=== PATIENT | male | born 1995 | race African-American/Black ===

== ENCOUNTER 2018-01-21 16:00 | Emergency (ER) | payer OTHER ==
[~2018-01-21] VITALS: Ht 182.9 cm; Wt 154.2 kg
[2018-01-21 16:10] VITALS: BP 123/77
[2018-01-21] MEDS ORDERED: LIDOCAINE 1%/EPI 1:100,000 20 ML VIAL. IJ ONE (16:45)
--- NOTE | 2018-01-21 17:00 | PHYS DOC ---
Past History Past Medical History: Asthma Past Surgical History: No Surgical History Alcohol Use: None Drug Use: None Adult General Chief Complaint Chief Complaint: HEMORRHOIDS HPI HPI 22-year-old male presents with pain in his buttocks. He states that he feels like there is a mass on the right side his gluteal cleft. He had this once before a few months ago and it had spontaneous rupture and drainage. It resolved with oral antibiotics afterwards. He denies fever or chills. This is only the second time has had one of these. He has never had an abscess anywhere else and denies testing positive for MRSA as far he knows. Patient has no other complaints.[] Review of Systems Review of Systems Constitutional: Denies fever or chills [] Eyes: Denies change in visual acuity, redness, or eye pain [] HENT: Denies nasal congestion or sore throat [] Respiratory: Denies cough or shortness of breath [] Cardiovascular: No additional information not addressed in HPI [] GI: Denies abdominal pain, nausea, vomiting, bloody stools or diarrhea [] : Abscess and gluteal cleft[] Musculoskeletal: Denies back pain or joint pain [] Integument: Gluteal abscess[] Neurologic: Denies headache, focal weakness or sensory changes [] Endocrine: Denies polyuria or polydipsia [] All other systems were reviewed and found to be within normal limits, except as documented in this note. Current Medications Current Medications Current Medications Medications (Trade) Dose Ordered Sig/Vonda Start Time Stop Time Status Last Admin Dose Admin Lidocaine/ Epinephrine (Xylocaine 1%-Epi 1:100,000) 20 ml 1X ONCE 01/21/18 16:45 01/21/18 16:46 DC Allergies Allergies Allergies Coded Allergies Type Severity Reaction Last Updated Verified No Known Drug Allergies 01/21/18 No Physical Exam Physical Exam Constitutional: Well developed, well nourished, no acute distress, non-toxic appearance. [] HENT: Normocephalic, atraumatic, bilateral external ears normal, oropharynx moist, no oral exudates, nose normal. [] Eyes: PERRLA, EOMI, conjunctiva normal, no discharge. [] Neck: Normal range of motion, no tenderness, supple, no stridor. [] Cardiovascular:Heart rate regular rhythm, no murmur [] Lungs & Thorax: Bilateral breath sounds clear to auscultation [] Abdomen: Bowel sounds normal, soft, no tenderness, no masses, no pulsatile masses. [] Skin: 3 cm fluctuant mass on the right side of the patient's anus in the gluteal cleft. This appears consistent with abscess.[] Back: No tenderness, no CVA tenderness. [] Extremities: No tenderness, no cyanosis, no clubbing, ROM intact, no edema. [] Neurologic: Alert and oriented X 3, normal motor function, normal sensory function, no focal deficits noted. [] Psychologic: Affect normal, judgement normal, mood normal. [] Current Patient Data Vital Signs Vital Signs Date Time Temp Pulse Resp B/P (MAP) Pulse Ox O2 Delivery O2 Flow Rate FiO2 01/21/18 16:10 Room Air 01/21/18 16:10 98.5 102 22 95 EKG EKG [] Radiology/Procedures Radiology/Procedures [] Course & Med Decision Making Course & Med Decision Making Pertinent Labs and Imaging studies reviewed. (See chart for details) The patient's mass was likely an abscess. I performed an I&D without complication. See note below for more details. I will place the patient on Bactrim DS 2 tabs twice a day for 7 days. I also discussed with the patient the possibility this. He is communicating with the rectum. I was unable to find a definitive track, but I advised him that if this area becomes infected again, he should seek a surgical consult. I&D: I obtained verbal consent from the patient I&D of his gluteal abscess. A timeout was performed to identify the site and type of procedure to be performed. The area was cleansed with chlorhexidine sponges. The chem was anesthetized with 1% lidocaine with epinephrine. I then made a 1/2 cm incision with a #11 scalpel. There was a moderate amount of drainage of purulent material. A wound culture was sent. I compressed and massage the abscess to milk out as much pus as possible. The abscess appeared to be deeper than initially thought as there was a decent amount of output. I then probed the abscess with a sterile Q-tip to ensure there were no loculations. Once the abscess was fully drained, placed clean gauze over the wound to facilitate continued absorption of any fluid that would come out. Patient tolerated the procedure well. There were no complications. Bleeding from the incision was controlled. [] Dragon Disclaimer Dragon Disclaimer This electronic medical record was generated, in whole or in part, using a voice recognition dictation system. Departure Departure: Scripts Sulfamethoxazole/Trimethoprim (BACTRIM DS TABLET) 1 Each Tablet 2 TAB PO BID for 7 Days, #28 TAB Prov: YAMILETH CARDOSO DO 01/21/18 YAMILETH CARDOSO DO Jan 21, 2018 17:00
[2018-01-21] MEDS ORDERED: SULF1TAB24 PO (18:25)
== END 2018-01-21 18:40 | disposition home or self-care (01) ==
LOC: ER 16:00
DX: L02.31 Cutaneous abscess of buttock (principal); J45.909 Unspecified asthma, uncomplicated
CPT/HCPCS: 10060; 87070; 99283

== ENCOUNTER 2019-04-23 22:33 | Emergency (ER) | payer OTHER ==
[~2019-04-23] VITALS: Ht 182.9 cm; Wt 166.8 kg
[~2019-04-23 22:33] MED LIST: SULF1TAB24 PO
--- NOTE | 2019-04-23 22:38 | PHYS DOC ---
Past History Past Medical History: Asthma Past Surgical History: No Surgical History Alcohol Use: None Drug Use: None Adult General Chief Complaint Chief Complaint: ".. I ve been sick since .... Congestion, drainage, cough.. 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 Pt. states the Upper respiratory Infection, cough, fever, chills have been present since . Patient is in his second year of college. Pt. travel from [place]. Pt. did not get a flu vaccination this season. Is around a lot of other students that have upper respiratory infections, bronchitis influenza. Patient states he is normally healthy. No history immunosuppression. Patient denies steroid use. Patient does have a history of asthma when he was a child. Review of Systems Review of Systems Constitutional: History of fever or chills [] Eyes: Denies change in visual acuity, redness, or eye pain [] HENT: History of nasal congestion and sore throat [] Respiratory: Complaints of nonproductive cough and wheezing Cardiovascular: No additional information not addressed in HPI [] GI: Denies abdominal pain, nausea, vomiting, bloody stools or diarrhea [] : Denies dysuria or hematuria [] Musculoskeletal: Complains of generalized joint, back pain and muscle pain Integument: Denies rash or skin lesions [] Neurologic: Denies headache, focal weakness or sensory changes [] Endocrine: Denies polyuria or polydipsia [] All other systems were reviewed and found to be within normal limits, except as documented in this note. Family History Family History Noncontributory Current Medications Current Medications See nursing for home meds Allergies Allergies Allergies Coded Allergies Type Severity Reaction Last Updated Verified No Known Drug Allergies 01/21/18 No Physical Exam Physical Exam Constitutional: Well developed, well nourished, moderate acute distress, non- toxic appearance. [] HENT: Normocephalic, atraumatic, bilateral external ears normal, oropharynx moist, ejected pharynx, TM on right is slightly injected, no oral exudates, nose swollen turbinates and clear rhinorrhea Eyes: PERRLA, EOMI, conjunctiva normal, no discharge. [] Neck: Normal range of motion, no tenderness, supple, no stridor. [] Cardiovascular:Heart rate regular rhythm, no murmur [] Lungs & Thorax: Bilateral breath sounds with apex with few scattered wheezes on auscultation [] Abdomen: Bowel sounds normal, soft, no tenderness, no masses, no pulsatile masses. [] Skin: Warm, dry, no erythema, no rash. [] Back: No tenderness, no CVA tenderness. [] Extremities: No tenderness, no cyanosis, no clubbing, ROM intact, no edema. [] Neurologic: Alert and oriented X 3, normal motor function, normal sensory function, no focal deficits noted. []DTRs +2 patella and brachial. Ambulatory without problems. No drift. Admissions Dean equal. Psychologic: Affect anxious, judgement normal, mood normal. [] EKG EKG [] Radiology/Procedures Radiology/Procedures [] Course & Med Decision Making Course & Med Decision Making Pertinent Labs and Imaging studies reviewed. (See chart for details) Patient take Tylenol and ibuprofen for discomfort. Patient push fluids. Patient gargle with Listerine. Patient uses MDI 2 puffs 4 times a day. Patient use Afrin 2 sprays at night. Patient take Benadryl 50 mg at night for drainage and congestion. Patient to use Flonase nasal spray at night 2 sprays each nail nose. Patient try normal saline rinses to nose. Patient follow-up primary care. Patient return if any concerns. Patient take prednisone 50 mg day for 5 days. : Impression: 1. Viral syndrome 2. Upper respiratory infection and bronchitis [] Dragon Disclaimer Dragon Disclaimer This electronic medical record was generated, in whole or in part, using a voice recognition dictation system. Departure Departure: Disposition: 01 HOME/RESIDENCE PRIOR TO ADM Condition: STABLE Referrals: PCP,NO (PCP) Scripts Prednisone (PREDNISONE) 50 Mg Tablet 50 MG PO DAILY for bronchitis for 5 Days, #5 TAB Prov: RADHA PALACIO MD 04/24/19 Jignesh Disclaimer This chart was dictated in whole or in part using Voice Recognition software in a busy, high-work load, and often noisy Emergency Department environment. It may contain unintended and wholly unrecognized errors or omissions. RADHA PALACIO MD Apr 23, 2019 22:38
[2019-04-23] MEDS ORDERED: predniSONE 10 MG TABLET PO ONE (23:00)
[2019-04-23] MEDS ORDERED: IBUPROFEN 600 MG TABLET. PO ONE (23:30)
[2019-04-23] MEDS ORDERED: ALBUTEROL SULFATE 8GM INHALER. INH ONE (23:30)
[2019-04-23 23:50] LABS: INFLUENZA A PATIENT NEGATIVE (NEGATIVE); INFLUENZA B PATIENT NEGATIVE (NEGATIVE)
[2019-04-24 00:35] VITALS: BP 154/79
[2019-04-24] MEDS ORDERED: PRED50TA PO (02:04)
== END 2019-04-24 00:43 | disposition home or self-care (01) ==
LOC: ER 22:33
DX: J45.909 Unspecified asthma, uncomplicated (principal); B34.9 Viral infection, unspecified; J06.9 Acute upper respiratory infection, unspecified
CPT/HCPCS: 87070; 87804; 87880; 94640; 99284; J7512; J7613; 94664